=== PATIENT | male | born 1950 | race Caucasian/White ===

== ENCOUNTER 2018-01-22 15:30 | Inpatient (IN) | END 2018-01-25 09:25 | disposition left against medical advice (07) | DRG 287 ==

== ENCOUNTER 2018-02-06 03:46 | Inpatient (IN) | END 2018-02-09 17:02 | disposition left against medical advice (07) | DRG 292 ==

== ENCOUNTER 2018-02-28 02:34 | Emergency (ER) | END 2018-02-28 15:56 | disposition left against medical advice (07) ==